=== PATIENT | male | born 1995 | race African-American/Black ===

== ENCOUNTER 2020-12-18 23:08 | Emergency (ER) | payer OTHER ==
[~2020-12-18] VITALS: Ht 175.3 cm; Wt 71.2 kg
[2020-12-18 23:14] VITALS: BP 141/84
== END 2020-12-19 04:01 | disposition left against medical advice (07) ==
LOC: ED 23:18
DX: K62.5 Hemorrhage of anus and rectum (principal); Z53.21 Procedure and treatment not carried out due to patient leaving prior to being seen by health care provider